=== PATIENT | male | born 1985 | race Caucasian/White ===

== ENCOUNTER 2018-10-02 10:43 | Emergency (ER) | payer MEDICAID ==
[~2018-10-02] VITALS: Ht 175.3 cm; Wt 88.5 kg
[2018-10-02 11:06] VITALS: Ht 175.3 cm; Wt 88.5 kg
[2018-10-02 11:52] LABS: microscopic required? NO
[2018-10-02 11:55] LABS: BASOPHIL % 0.4 % (0-2); PLATELET COUNT 158 x10^3mcL (130-400); RED CELL DISTRIBUTION WIDTH 14.5 % (11.5-14.5)
[2018-10-02 12:08] LABS: urine erythrocyte NEGATIVE (NEGATIVE)
[2018-10-02 12:11] LABS: CALCIUM 8.6 mg/dL (8.5-10.1); CARBON DIOXIDE 30.5 mmol/L (21-32); CHLORIDE SERUM 108 mmol/L (98-107); CREATININE SERUM 0.9 mg/dL (0.7-1.3); GFR1 > 60 mL/min; GLUCOSE SERUM 101 mg/dL (74-106); POTASSIUM SERUM 4.3 mmol/L (3.5-5.1); SODIUM SERUM 145 mmol/L (136-145)
[2018-10-02 12:24] LABS: ALBUMIN 3.4 g/dL (3.4-5.0); ALKALINE PHOSPHATASE 78 U/L (46-116); ALT/SGPT 27 U/L (16-63); AMYLASE 82 U/L (25-115); AST/SGOT 13 U/L (15-37); BILIRUBIN TOTAL 0.21 mg/dL (0.20-1.00); CHOLESTEROL 115 mg/dL (<200); HDL CHOLESTEROL 38 mg/dL (40-60); LIPASE 181 IU/L (73-393); T4(THYROXINE) 6.4 ug/dL (4.7-13.3); TOTAL PROTEIN, SERUM 6.7 g/dL (6.4-8.2)
[2018-10-02 12:24] LABS: AMPHETAMINE QUAL UR NONE DETECTED (See below)
[2018-10-02 14:37] VITALS: BP 114/70
== END 2018-10-02 14:37 | disposition home or self-care (01) ==
LOC: ED 10:43
PROVIDERS: Emergency Medicine
DX: R20.2 Paresthesia of skin (principal); F17.210 Nicotine dependence, cigarettes, uncomplicated
CPT/HCPCS: 36415; 83880; 99406